=== PATIENT | male | born 1940 | race Caucasian/White ===

== ENCOUNTER → 2017-11-03 | Outpatient (CLI) | payer MEDICARE, OTHER ==
[~2017-11-03] MED LIST: BUSP10 PO; CELE200 PO; CHOL10002; FAMO20 PO; LISI5 PO; LORA1 PO; METO10 PO; Multiple Vitam1 EAC1 PO; PRESERVISION PO; TERA5 PO; TERB250 PO; TRIHYD PO
== END | disposition home or self-care (01) ==
LOC: LAB SHORT 11:56 → PLD 11:56
DX: D48.5 Neoplasm of uncertain behavior of skin (principal)
CPT/HCPCS: 88305

== ENCOUNTER → 2017-11-18 | Outpatient (CLI) | payer MEDICARE, OTHER | END | disposition home or self-care (01) | LOC: PLD 08:07 → LAB SHORT 08:07 | DX: C44.41 Basal cell carcinoma of skin of scalp and neck (principal) | CPT/HCPCS: 88305 ==

== ENCOUNTER → 2019-10-26 | Outpatient (CLI) | payer MEDICARE, OTHER ==
[~2019-10-26] MED LIST changes: +Aspir 8181 MG PO; -CHOL10002; +Dyazide 37.5-21 EACH PO; +LOSA50 PO; +OXYC5 PO; +VITAMIN D3 PO
== END | disposition home or self-care (01) ==
LOC: LAB SHORT 08:41 → PLD 08:41
DX: I87.2 Venous insufficiency (chronic) (peripheral) (principal)
CPT/HCPCS: 88305

== ENCOUNTER → 2019-11-13 | Outpatient (CLI) | payer MEDICARE, OTHER | END | disposition home or self-care (01) | LOC: LAB SHORT 16:47 → LAB EV 16:47 | DX: R35.0 Frequency of micturition (principal) | CPT/HCPCS: 87086 ==

== ENCOUNTER 2020-03-21 10:07 | Day surgery (SDC) | payer MEDICARE, OTHER ==
[~2020-03-21] VITALS: Ht 172.7 cm; Wt 107.8 kg
--- NOTE | 2020-03-21 11:32 | NUR ---
Ambulatory in Day Surgery. Surgical site prepped with 2% Chlorhexidine cloth wipe. History, Chart, Medications and Allergies reviewed before start of procedure.Lungs clear T/O to Auscultation. Patient confirms NPO status and agrees with scheduled surgery. Pre-Op teaching done. Pt verbalizes understanding. Patient States Post-Procedure ride home has been arranged.
[2020-03-22 04:47] LABS: BASOPHILS ABSOLUTE AUTO 0.02 K/mm3 (0.00-0.23); BASOPHILS PERCENT AUTO 0 % (0-2); EOSINOPHILS ABSOLUTE AUTO 0.09 K/mm3 (0.00-0.68); EOSINOPHILS PERCENT AUTO 1 % (0-6); Hematocrit 36.8 % (37.0-53.0); Hemoglobin 12.2 g/dL (13.5-17.5); IMMATURE GRAN ABSOLUTE AUTO 0.01 K/mm3 (0.00-0.10); IMMATURE GRAN PERCENT AUTO 0 % (0-1); LYMPHOCYTES ABSOLUTE AUTO 1.25 K/mm3 (0.84-5.20); LYMPHOCYTES PERCENT AUTO 15 % (21-46); MONOCYTES ABSOLUTE AUTO 0.86 K/mm3 (0.16-1.47); MONOCYTES PERCENT AUTO 10 % (4-13); Mean Corpuscular HGB 30.8 pg (26.0-34.0); Mean Corpuscular HGB Conc 33.2 g/dL (31.5-36.5); Mean Corpuscular Volume 93 fL (80-100); Mean Platelet Volume 9.7 fL (9.1-12.4); NEUTROPHILS ABSOLUTE AUTO 6.06 K/mm3 (1.96-9.15); NEUTROPHILS PERCENT AUTO 73 % (41-73); Platelet Count 172 K/mm3 (150-400); RDW Standard Deviation 44.4 fL (35.1-46.3); Red Blood Cell Count 3.96 M/mm3 (4.30-5.90); White Blood Cell Count 8.29 K/mm3 (4.00-11.30)
[2020-03-22 05:06] LABS: Anion Gap 3 mmol/L (6-16); Blood Urea Nitrogen 20 mg/dL (8-24); Bun/Creatinine Ratio 19.8 (12.0-20.0); CO2, Blood 29 mmol/L (21-32); Calcium, Blood 7.7 mg/dL (8.5-10.1); Chloride, Blood 106 mmol/L (98-108); Creatinine, Blood 1.01 mg/dL (0.60-1.20); Glomerular Filtration Rate >60 (60-); Glucose, Blood 94 mg/dL (70-99); Potassium, Blood 3.7 mmol/L (3.5-5.5); Sodium, Blood 138 mmol/L (136-145)
--- NOTE | 2020-03-22 06:04 | NUR ---
SHIFT SUMMARY: KEVIN IS POD1 FOR A L TKA. HE IS A&O, TOLERATING PO INTAKE WELL. HE WORE HIS CPAP DURING THE NIGHT. VSS, HE DOES HAVE BRADYCARDIA. HE DENIES ANY DIZZINESS OR LIGHTHEADEDNESS. HE IS TOLERATING PO INTAKE WELL. AQUACELL TO L KNEE C/D&I. POLAR PACK, PARK HOSE, AND SCDs IN PLACE. HE IS URINATING WITHOUT DIFFICULTY. HE STATES THAT HIS PAIN IS WELL CONTROLLED WITH THE APAP AND TORADOL. IV TO R AC PATENT. NO ACUTE EVENTS OVERNIGHT. HE USES HIS CALL LIGHT APPROPRIATELY. HE WAS ON 2 L NC PRIOR TO SWITCHING TO HIS CPAP. HE IS LYING IN BED WITH HIS CALL LIGHT IN REACH. WILL REPORT TO DAY SHIFT RN.
[2020-03-22] MEDS ORDERED: ASPI81CH PO (14:24)
[2020-03-22] MEDS ORDERED: Percocet 5-3251 EACH PO (14:25)
--- NOTE | 2020-03-22 14:58 | NUR ---
DISCHARGE CLEARED THERAPY, PAIN WELL CONTROLLED. EATING, DRINKING, VOIDING WELL. SCRIPTS, POLAR PACK, AND DRSGS GIVEN. PT ESCORTED OUT VIA W/C.
== END 2020-03-22 15:00 | disposition home or self-care (01) ==
LOC: ORSCMMR 10:07 → ORD 11:15 → SURS 15:34 → ORSCMMR 03-22 15:00 → ORD 04-25 08:15
PROVIDERS: Orthopaedic Surgery
PROC: 0SRD0JA Replacement of Left Knee Joint with Synthetic Substitute, Uncemented, Open Approach (ICD-10-PCS; principal; 2020-03-21 11:15)
DX: M17.12 Unilateral primary osteoarthritis, left knee (principal); I10 Essential (primary) hypertension; K21.9 Gastro-esophageal reflux disease without esophagitis; F17.210 Nicotine dependence, cigarettes, uncomplicated; E66.01 Morbid (severe) obesity due to excess calories; Z68.36 Body mass index [BMI] 36.0-36.9, adult; Z79.899 Other long term (current) drug therapy
CPT/HCPCS: 36415; 73560-LT; 80048; 85025; 86850; 86900; 86901; 88300; 97110; 97116; 97161; 97530; A9270-GY; C1776; J0171; J0690; J0735; J1885; J2250; J2704; J2795; J3010; J7120

== ENCOUNTER 2020-03-23 17:32 | Emergency (ER) | payer MEDICARE, OTHER ==
[~2020-03-23] VITALS: Ht 172.7 cm; Wt 108.0 kg
[~2020-03-23 17:32] MED LIST changes: +ASPI81CH PO; +Percocet 5-3251 EACH PO
== END 2020-03-23 18:45 | disposition home or self-care (01) ==
LOC: ER 17:32
DX: M96.830 Postprocedural hemorrhage of a musculoskeletal structure following a musculoskeletal system procedure (principal); Z88.5 Allergy status to narcotic agent; Z91.09 Other allergy status, other than to drugs and biological substances; Z79.899 Other long term (current) drug therapy; F41.9 Anxiety disorder, unspecified; E78.00 Pure hypercholesterolemia, unspecified; Z79.82 Long term (current) use of aspirin; Z87.891 Personal history of nicotine dependence; Z96.652 Presence of left artificial knee joint
CPT/HCPCS: 99283-25

== ENCOUNTER → 2020-05-02 | Outpatient (CLI) | payer MEDICARE, OTHER ==
[~2020-05-02] MED LIST changes: -ASPI81CH PO; +Aspirin EC81 MG PO; +Buspirone HCl10 MG PO; +CELEBREX200 MG PO; +Hytrin2 MG PO; -VITAMIN D3 PO; +VITAMIN D31000 UNI1 PO
== END | disposition home or self-care (01) ==
LOC: PLD 11:29 → LAB SHORT 11:29
DX: C44.222 Squamous cell carcinoma of skin of right ear and external auricular canal (principal)
CPT/HCPCS: 88305

== ENCOUNTER → 2020-11-07 | Outpatient (CLI) | payer MEDICARE, OTHER | END | disposition home or self-care (01) | LOC: LAB SHORT 12:22 → LAB 12:22 | DX: D48.5 Neoplasm of uncertain behavior of skin (principal) | CPT/HCPCS: 88305 ==

== ENCOUNTER → 2020-11-22 | Outpatient (CLI) | payer MEDICARE, OTHER | END | disposition home or self-care (01) | LOC: LAB 14:53 → LAB SHORT 14:53 | DX: C44.41 Basal cell carcinoma of skin of scalp and neck (principal) | CPT/HCPCS: 88305 ==

== ENCOUNTER → 2020-12-06 | Outpatient (CLI) | payer MEDICARE, OTHER | END | disposition home or self-care (01) | LOC: LAB 12:54 → LAB SHORT 12:54 | DX: C44.41 Basal cell carcinoma of skin of scalp and neck (principal); B88.0 Other acariasis | CPT/HCPCS: 88305 ==

== ENCOUNTER → 2021-01-09 | Outpatient (CLI) | payer MEDICARE, OTHER | END | disposition home or self-care (01) | LOC: LAB SHORT 12:39 → PLD 12:39 | DX: C44.310 Basal cell carcinoma of skin of unspecified parts of face (principal) | CPT/HCPCS: 88305 ==

== ENCOUNTER → 2021-01-30 | Outpatient (CLI) | payer MEDICARE, OTHER | LOC: LAB SHORT 11:25 → LAB 11:25 | DX: D48.5 Neoplasm of uncertain behavior of skin (principal) | CPT/HCPCS: 88305 ==

== ENCOUNTER → 2021-08-14 | Outpatient (CLI) | payer MEDICARE, OTHER | LOC: LAB SHORT 15:01 → LAB 15:01 | DX: D48.5 Neoplasm of uncertain behavior of skin (principal); Z88.5 Allergy status to narcotic agent; Z91.040 Latex allergy status; Z91.041 Radiographic dye allergy status | CPT/HCPCS: 88305 ==

== ENCOUNTER → 2021-10-25 | Outpatient (CLI) | payer MEDICARE, OTHER | END | disposition home or self-care (01) | LOC: LAB SHORT 14:41 | DX: L57.8 Other skin changes due to chronic exposure to nonionizing radiation (principal) | CPT/HCPCS: 88305 ==

== ENCOUNTER → 2022-02-12 | Outpatient (CLI) | payer MEDICARE | END | disposition home or self-care (01) | LOC: LAB SHORT 15:07 → PLD 15:07 | DX: C44.311 Basal cell carcinoma of skin of nose (principal) | CPT/HCPCS: 88305 ==

== ENCOUNTER → 2022-08-13 | Outpatient (CLI) | payer MEDICARE, OTHER | END | disposition home or self-care (01) | LOC: LAB SHORT 14:56 → LAB 14:56 | DX: C44.319 Basal cell carcinoma of skin of other parts of face (principal) | CPT/HCPCS: 88305 ==

== ENCOUNTER 2023-07-22 06:47 | Day surgery (SDC) | payer MEDICARE ==
[~2023-07-22] VITALS: Ht 172.7 cm; Wt 107.7 kg
[2023-07-22] MEDS ORDERED: GABA300 PO (07:27)
[2023-07-22] MEDS ORDERED: OXYC5 PO (07:28)
[2023-07-22 08:25] VITALS: BP 171/89
--- NOTE | 2023-07-22 08:35 | NUR ---
07/22/23 0835 RAINA BLANCO IV REMOVED. WNL. CANNULA INTACT. SHAE WELL
== END 2023-07-22 08:45 | disposition home or self-care (01) ==
LOC: ORSCSDS 06:47
PROVIDERS: Student in an Organized Health Care Education/Training Program
PROC: 08DK3ZZ Extraction of Left Lens, Percutaneous Approach (ICD-10-PCS; principal; 2023-07-22 08:00)
DX: H25.12 Age-related nuclear cataract, left eye (principal); Z96.1 Presence of intraocular lens; H40.1131 Primary open-angle glaucoma, bilateral, mild stage; H35.3130 Nonexudative age-related macular degeneration, bilateral, stage unspecified; Z87.891 Personal history of nicotine dependence; I10 Essential (primary) hypertension; Z79.899 Other long term (current) drug therapy
CPT/HCPCS: J2001; J2250; J7040; V2632

== ENCOUNTER → 2023-11-19 | Outpatient (CLI) | payer MEDICARE ==
[~2023-11-19] MED LIST changes: +GABA300 PO
[2023-11-19 11:53] LABS: BASOPHILS ABSOLUTE AUTO 0.02 K/mm3 (0.00-0.23); BASOPHILS PERCENT AUTO 0 % (0-2); EOSINOPHILS ABSOLUTE AUTO 0.14 K/mm3 (0.00-0.68); EOSINOPHILS PERCENT AUTO 3 % (0-6); Hematocrit 44.8 % (37.0-53.0); IMMATURE GRAN ABSOLUTE AUTO 0.01 K/mm3 (0.00-0.10); IMMATURE GRAN PERCENT AUTO 0 % (0-1); LYMPHOCYTES ABSOLUTE AUTO 1.27 K/mm3 (0.84-5.20); LYMPHOCYTES PERCENT AUTO 24 % (21-46); MONOCYTES ABSOLUTE AUTO 0.41 K/mm3 (0.16-1.47); MONOCYTES PERCENT AUTO 8 % (4-13); Mean Corpuscular HGB 31.6 pg (26.0-34.0); Mean Corpuscular HGB Conc 33.5 g/dL (31.5-36.5); Mean Corpuscular Volume 94 fL (80-100); Mean Platelet Volume 9.4 fL (9.1-12.4); NEUTROPHILS ABSOLUTE AUTO 3.54 K/mm3 (1.96-9.15); NEUTROPHILS PERCENT AUTO 66 % (41-73); Platelet Count 208 K/mm3 (150-400); RDW Coefficient Variation 13.1 % (11.7-14.2); Red Blood Cell Count 4.75 M/mm3 (4.30-5.90); White Blood Cell Count 5.39 K/mm3 (4.00-11.30)
[2023-11-19 12:07] LABS: Albumin, Blood 3.8 g/dL (3.4-5.0); Albumin/Globulin Ratio 1.1 (0.8-1.8); Bilirubin, Total 0.6 mg/dL (0.1-1.0); Bun/Creatinine Ratio 15.1 (12.0-20.0); Calcium, Blood 9.1 mg/dL (8.5-10.1); Creatinine, Blood 1.19 mg/dL (0.60-1.20); Globulin, Blood 3.4 g/dL (2.2-4.0); Potassium, Blood 3.7 mmol/L (3.5-5.5); Total Protein, Blood 7.2 g/dL (6.4-8.2)
== END | disposition home or self-care (01) ==
LOC: LAB 11:46 → LAB SHORT 11:46
PROVIDERS: Chiropractor
DX: R06.09 Other forms of dyspnea (principal)
CPT/HCPCS: 80053; 83880; 84484; 85025